=== PATIENT | male | born 1960 | race Native Hawaiian/Other Pacific Islander ===

== ENCOUNTER 2019-08-29 18:35 | Emergency (ER) | payer OTHER ==
[~2019-08-29] VITALS: Ht 182.9 cm; Wt 85.4 kg
[2019-08-29 19:05] LABS: PLATELET COUNT 218 K/uL (142-355)
[2019-08-29 20:45] VITALS: BP 110/81; TEMP 98.9
[2019-08-29] MEDS ORDERED: BENZ1TAB43 PO (22:05)
[2019-08-29] MEDS ORDERED: GNP MELATONIN3 MG PO (22:07)
[2019-08-29] MEDS ORDERED: REMERON SOLTAB15 MG PO (22:08)
[2019-08-29] MEDS ORDERED: CLON0.5T36 PO (22:10)
[2019-08-29] MEDS ORDERED: TYLENOL325 MG PO (22:11)
[2019-08-29] MEDS ORDERED: HALO5TAB10 PO (22:13)
== END 2019-08-29 20:45 | disposition other institution (70) ==
LOC: ED 18:46
PROVIDERS: Emergency Medicine
DX: Z04.6 Encounter for general psychiatric examination, requested by authority (principal); F28 Other psychotic disorder not due to a substance or known physiological condition; Z11.59 Encounter for screening for other viral diseases
CPT/HCPCS: 80053; 81000; 85027; 87635; 93005; 99283; 99285; G2023; U00003